=== PATIENT | male | born 1950 | race African-American/Black ===

== ENCOUNTER 2017-11-27 14:47 | Outpatient (CLI) | payer SELFPAY | END 2017-11-27 14:48 | disposition home or self-care (01) | LOC: BICRAD 14:47 | PROVIDERS: ATTEND Radiology Radiation Oncology | DX: M25.552 Pain in left hip (principal); C76.0 Malignant neoplasm of head, face and neck | CPT/HCPCS: 72170 ==

== ENCOUNTER 2018-12-15 20:09 | Emergency (ER) | payer OTHER, SELFPAY | END 2018-12-15 20:20 | disposition home or self-care (01) | LOC: ER/OP 20:09 | DX: Z43.1 Encounter for attention to gastrostomy (principal) | CPT/HCPCS: B4087 ==

== ENCOUNTER 2019-12-13 13:14 | Outpatient (CLI) | payer OTHER ==
[~2019-12-13 13:14] MED LIST: Magnevist 469MG/ML 20 ML VIAL ONE
[2019-12-13 15:20] LABS: Estimated GFR-MDRD - POC Greater than 90
--- NOTE | 2019-12-13 16:27 | MRI ---
MRI OF THE PROSTATE WITHOUT AND WITH CONTRAST: 12/13/19 HISTORY: Elevated PSA. TECHNIQUE: Multiplanar and multisequence MRI images were obtained of the prostate without and with IV contrast. FINDINGS: There is moderate hypertrophy of the central gland consistent with BPH. Prostate volume is estimated at 50 mL. No suspicious low T2 signal lesion is seen in the prostate. No restricted diffusion is seen in the pe ripheral zone of the prostate. No low signal is seen on the ADC map in the peripheral zone of the pro state. The seminal vesicles are intact. The neurovascular bundles are intact. No enlarged pelvic lymph nodes are seen. No marrow signal abnormality is present. IMPRESSION: PI-RADS category 2 - low likelihood that a clinically significant cancer is present. POS: EAA
== END 2019-12-13 13:15 | disposition home or self-care (01) ==
LOC: TBSIIMAG 13:14
PROVIDERS: ATTEND Urology
DX: R97.20 Elevated prostate specific antigen [PSA] (principal)
CPT/HCPCS: 72197; 82565; A9579